=== PATIENT | female | born 1985 | race Two or more races ===

== ENCOUNTER 2021-04-02 21:54 | Inpatient (IN) | payer OTHER ==
[~2021-04-02] VITALS: Ht 165.1 cm; Wt 67.6 kg
[2021-04-03] MEDS ORDERED: PRENATAL + DHA1 EAC1 PO (08:49)
== END 2021-04-05 10:01 | disposition home or self-care (01) | DRG 833 ==
LOC: LDR 21:54 → OB/GYN 04-03 18:01
PROVIDERS: ADMIT Obstetrics & Gynecology; ATTEND Obstetrics & Gynecology
PROC: BY4CZZZ Ultrasonography of Second Trimester, Single Fetus (ICD-10-PCS; principal; 2021-04-03)
DX: O60.02 Preterm labor without delivery, second trimester (principal); Z3A.23 23 weeks gestation of pregnancy; Z20.822 Contact with and (suspected) exposure to COVID-19

== ENCOUNTER 2021-06-30 08:47 | Inpatient (IN) | payer OTHER ==
[~2021-06-30] VITALS: Ht 165.1 cm; Wt 77.1 kg
[~2021-06-30 08:47] MED LIST: PRENATAL + DHA1 EAC1 PO
[2021-06-30] MEDS ORDERED: NIFE60TA3 PO (10:28)
== END 2021-07-03 13:10 | disposition home or self-care (01) | DRG 786 ==
LOC: NST 08:47 → O/R 09:49 → LDR 09:49 → O/R 13:01 → OB/GYN 14:16
PROVIDERS: ADMIT Obstetrics & Gynecology; ATTEND Obstetrics & Gynecology
PROC: 4A1HXFZ Monitoring of Products of Conception, Cardiac Rhythm, External Approach (ICD-10-PCS; 2021-06-30)
PROC: 10D00Z1 Extraction of Products of Conception, Low, Open Approach (ICD-10-PCS; principal; 2021-06-30 12:00)
DX: O65.5 Obstructed labor due to abnormality of maternal pelvic organs (principal); O60.14X0 Preterm labor third trimester with preterm delivery third trimester, not applicable or unspecified; O34.29 Maternal care due to uterine scar from other previous surgery; Z3A.36 36 weeks gestation of pregnancy; Z37.0 Single live birth; Z20.822 Contact with and (suspected) exposure to COVID-19